=== PATIENT | female | born 1970 | race Caucasian/White ===

== ENCOUNTER → 2019-11-29 07:45 | Outpatient (CLI) | payer BC, SELFPAY ==
--- NOTE | ~2019-11-29 | XR_ITS ---
XR hip LT min 2V DATE: 11/29/2019 08:05 INDICATION: Hip pain. History of rheumatoid arthritis. TECHNIQUE: AP and lateral views of left hip COMPARISON: None FINDINGS: No fracture or dislocation, avascular necrosis or bone destruction. The left hip joint spac e is well preserved. The pubic symphysis and left sacroiliac joint are intact. IMPRESSION: Negative left hip Reviewed, dictated and finalized at location B. PER OFF IMPRESSION: Negative left hip
== END ==
DX: M05.79 Rheumatoid arthritis with rheumatoid factor of multiple sites without organ or systems involvement (principal); M25.552 Pain in left hip; Z51.81 Encounter for therapeutic drug level monitoring
CPT/HCPCS: 73502

== ENCOUNTER → 2020-06-20 12:48 | Outpatient (CLI) | payer BC, SELFPAY ==
--- NOTE | ~2020-06-20 | MM_ITS ---
EXAMINATION: MM scrn julia implant BI w ashleigh HISTORY: Screening mammogram TECHNIQUE: Craniocaudal and mediolateral oblique 3-D tomosynthesis images with implant displacement a nd synthetic 2-D images were generated. Craniocaudal and mediolateral oblique views of the breasts wi thout implant displacement were obtained using full field digital mammography. CAD analysis was submi tted and interpreted. COMPARISON: Comparison to multiple prior studies sequentially, with oldest reviewed study dated 06/04. BREAST PARENCHYMAL COMPOSITION: There are scattered areas of fibroglandular density. FINDINGS: There is no evidence of suspicious mass, calcification, or architectural distortion to sugg est malignancy in either breast. There has been no suspicious interval change. IMPRESSION: 1. No mammographic evidence of malignancy. 2. Recommend routine screening mammography in one year. BI-RADS Category 1: Negative Reviewed, dictated and finalized at location A.
== END ==
DX: Z12.31 Encounter for screening mammogram for malignant neoplasm of breast (principal)
CPT/HCPCS: 77063; 77067

== ENCOUNTER → 2022-04-17 12:07 | Outpatient (CLI) | payer BC, SELFPAY ==
--- NOTE | ~2022-04-17 | MM_ITS ---
EXAMINATION: MM scrn julia implant BI w ashleigh HISTORY: Screening mammogram TECHNIQUE: Craniocaudal and mediolateral oblique 3-D tomosynthesis images with implant displacement a nd synthetic 2-D images were generated. Craniocaudal and mediolateral oblique views of the breasts wi thout implant displacement were obtained using full field digital mammography. CAD analysis was submi tted and interpreted. COMPARISON: Comparison to multiple prior studies sequentially, with oldest reviewed study dated 06/09. BREAST PARENCHYMAL COMPOSITION: Breast composed of scattered areas of fibroglandular density FINDINGS: There are bilateral subpectoral silicone implants. There is no evidence of suspicious mass, calcification, or architectural distortion to suggest malignancy in either breast. There has been no suspicious interval change. IMPRESSION: 1. No mammographic evidence of malignancy. 2. Recommend routine screening mammography in one year. BI-RADS Category 1: Negative Reviewed, dictated and finalized at location A.
== END ==
PROVIDERS: Visit Provider Obstetrics & Gynecology
DX: Z12.31 Encounter for screening mammogram for malignant neoplasm of breast (principal)
CPT/HCPCS: 77063; 77067

== ENCOUNTER → 2023-03-18 14:56 | Outpatient (CLI) | payer BC, SELFPAY ==
--- NOTE | ~2023-03-18 | XR_ITS ---
EXAMINATION: XR lumbar spine 2-3V DATE: 03/18/2023 15:17 INDICATION: Low back pain TECHNIQUE: Anteroposterior and lateral views of the lumbar spine, and cone-down lateral view of the l umbosacral junction were obtained. COMPARISON: 12/23/2015 FINDINGS: Bone alignment is normal. There is no fracture. The vertebral body heights and intervertebr al disc spaces are maintained. There is mild facet joint osteoarthritis at L5-S1. Bilateral breast im plants are noted. The visualized lung bases are clear. IMPRESSION: 1. Mild lumbar spondylosis without acute findings. Reviewed, dictated and finalized at location F.
== END ==
DX: M47.896 Other spondylosis, lumbar region (principal)
CPT/HCPCS: 72100

== ENCOUNTER 2023-05-26 14:31 | Outpatient (CLI) | payer BC, SELFPAY ==
--- NOTE | ~2023-05-26 | MM_ITS ---
EXAMINATION: MM scrn julia implant BI w ashleigh HISTORY: Screening mammogram TECHNIQUE: Craniocaudal and mediolateral oblique 3-D tomosynthesis images with implant displacement a nd synthetic 2-D images were generated. Craniocaudal and mediolateral oblique views of the breasts wi thout implant displacement were obtained using full field digital mammography. CAD analysis was submi tted and interpreted. COMPARISON: Comparison to multiple prior studies sequentially, with oldest reviewed study dated 01/2014. BREAST PARENCHYMAL COMPOSITION: There are scattered areas of fibroglandular density. FINDINGS: There is no evidence of suspicious mass, calcification, or architectural distortion to sugg est malignancy in either breast. There has been no suspicious interval change. IMPRESSION: 1. No mammographic evidence of malignancy. 2. Recommend routine screening mammography in one year. BI-RADS Category 1: Negative Reviewed, dictated and finalized at location A.
== END 2023-05-26 14:32 | disposition home or self-care (01) ==
LOC: CHSIMG 14:33
PROVIDERS: Visit Provider Obstetrics & Gynecology
DX: Z12.31 Encounter for screening mammogram for malignant neoplasm of breast (principal)
CPT/HCPCS: 77063; 77067

== ENCOUNTER 2024-07-28 12:31 | Outpatient (CLI) | payer OTHER, SELFPAY ==
--- NOTE | ~2024-07-28 | XR_ITS ---
EXAMINATION: XR lumbar spine 2-3V, XR sacroiliac joints min 3V DATE: 07/28/2024 12:59 INDICATION: Rheumatoid arthritis TECHNIQUE: 1. Anteroposterior and lateral views of the lumbar spine, and cone-down lateral view of the lumbosacr al junction were obtained. 2. Anteroposterior and left and right oblique views of the bilateral sacralized joints were obtained. COMPARISON: 03/18/2023 FINDINGS: 2 mm anterolisthesis L4 on L5. Vertebral body and disc heights are normal. Mild lower lumbar facet os teoarthritis. It osteoarthritis. No erosions or subarticular sclerosis to suggest inflammatory sacroi liitis. Sacral arches are intact. Bilateral hip joint spaces are relatively preserved. IMPRESSION: 1. Mild lower lumbar facet osteoarthritis and minimal bilateral sacroiliac osteoarthritis. Otherwise unremarkable radiographs of the lumbar spine and sacroiliac joints. Reviewed, dictated and finalized at location A. IMPRESSION: 1. Mild lower lumbar facet osteoarthritis and minimal bilateral sacroiliac oste oarthritis. Otherwise unremarkable radiographs of the lumbar spine and sacroili ac joints.
== END 2024-07-28 12:32 | disposition home or self-care (01) ==
DX: M47.816 Spondylosis without myelopathy or radiculopathy, lumbar region (principal); M05.79 Rheumatoid arthritis with rheumatoid factor of multiple sites without organ or systems involvement; M06.4 Inflammatory polyarthropathy; M77.9 Enthesopathy, unspecified; R53.83 Other fatigue; M54.30 Sciatica, unspecified side; Z51.81 Encounter for therapeutic drug level monitoring
CPT/HCPCS: 72100; 72202

== ENCOUNTER 2025-08-20 07:15 | Outpatient (CLI) | payer BC, SELFPAY ==
--- NOTE | ~2025-08-20 | MM_ITS ---
EXAMINATION: MM scrn julia implant BI w ashleigh HISTORY: Screening mammogram TECHNIQUE: Craniocaudal and mediolateral oblique 3-D tomosynthesis images with implant displacement and synthetic 2-D images were generated. Craniocaudal and mediolateral oblique views of the breasts without implant displacement were obtained using full field digital mammography. CAD analysis was submitted and interpreted. COMPARISON: Comparison to multiple prior studies sequentially, with oldest reviewed study dated 09/03/2015. BREAST PARENCHYMAL COMPOSITION: Not dense: There are scattered areas of fibroglandular density. FINDINGS: There is no evidence of suspicious mass, calcification, or architectural distortion to suggest malignancy in either breast. There has been no suspicious interval change. IMPRESSION: 1. No mammographic evidence of malignancy. 2. Recommend routine screening mammography in one year. BI-RADS Category 1: Negative Reviewed, dictated and finalized at location B. ING SPECIALIST
--- OUTSIDE RECORDS SUMMARY | 2025-08-20 07:21 | XMS_ITS | Patient Health Record ---
Author Organization [facility] Address [address] [facility]. [address] [place] [id number] Care Team Providers Care Stage Set Designer Name Role Phone Dejan Samuels MD Primary Care Provider Keith Acevedo Unavailable [phone] Allergies Allergen (clinical drug ingredient) Drug/Non Drug Allergy documented on EMR Reaction Allergy Type Onset Date Status Substance with sulfonamide structure and antibacterial mechanism of action (substance) Sulfa (uncoded) Unknown Allergy Active Penicillin G Benzathine Unknown Drug Allergy Active Reason For Referral No Information Medications Medication SIG (Take, Route, Frequency, Duration) Notes Start Date End Date Status Methotrexate Active Premarin Active Enbrel Active OTC/Vitamins Folic acid, Zyrtec, D, C Active Rosuvastatin Calcium Active Levothyroxine Sodium Active Social History Tobacco Use: Social History Observation Description Date Details (start date - stop date) Former Smoker NA - NA Tobacco Use/Smoking Question Answer Notes Are you a former smoker How long has it been since you last smoked? 1-5 years Problems Problem Type SNOMED Code ICD Code Onset Dates Problem Status W/U Status Risk Notes Problem Constipation (64869301) Constipation (K59.00) Active confirmed Plan Of Treatment Pending Test Test Name Order Date Colonoscopy 10/28/2020 Insurance Providers Payer Name Payer Address Payer Phone Subscriber Number Group Number Insured Name Patient Relationship to Insured Coverage Start Date Coverage End Date [employer] PPO E2 [address] [place] [address] [id number] Bonilla Self - patient is the insured 1 1 Medical (General) History Surgical History Surgery Date(Month/Year) Hysterectomy 2009
--- OUTSIDE RECORDS SUMMARY | 2025-08-20 07:22 | XMS_ITS | Encounter Summary ---
Author Organization [facility] Address 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 Gender Identity Not on file Sexual Orientation Not on file documented as of this encounter Plan of Treatment Upcoming Encounters Date Type Department Care Team (Late st Contact Info) Description 05/29/2026 10:30 AM CDT Office Visit [facility] Internal Medicine Medical [place] [facility] [phone] [phone] Deep Sutton MD [address] [address] documented as of this encounter Visit Diagnoses Not on filedocumented in this encounter Care Teams Vocational Rehabilitation Specialist Relationship Specialty Start Date End Date Deep Sutton MD [address] [address] PCP - General Internal Medicine 01/31/21 documented as of this encounter
--- OUTSIDE RECORDS SUMMARY | 2025-08-20 07:22 | XMS_ITS | Encounter Summary ---
Author Organization [facility] Address 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 Gender Identity Not on file Sexual Orientation Not on file documented as of this encounter Plan of Treatment Upcoming Encounters Date Type Department Care Team (Late st Contact Info) Description 05/29/2026 10:30 AM CDT Office Visit [facility] Internal Medicine Medical [place] [facility] [address] [phone] Deep Sutton MD [address] [address] documented as of this encounter Visit Diagnoses Not on filedocumented in this encounter Care Teams Firer Glost Kiln Relationship Specialty Start Date End Date Deep Sutton MD [address] [address] PCP - General Internal Medicine 01/31/21 documented as of this encounter
--- OUTSIDE RECORDS SUMMARY | 2025-08-20 07:22 | XMS_ITS | Encounter Summary ---
Author Organization Address 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 SUPPORT COORDINATOR Gender Identity Not on file Sexual Orientation Not on file documented as of this encounter Plan of Treatment Upcoming Encounters Date Type Department Care Team (Late st Contact Info) Description 05/29/2026 10:30 AM CDT Office Visit [facility] Internal Medicine Medical [place] [facility] [address] [phone] eDep Sutton MD [address] [address] documented as of this encounter Visit Diagnoses Not on filedocumented in this encounter Care Teams Clerical Production Worker Relationship Specialty Start Date End Date Deep Sutton MD [address] [address] PCP - General Internal Medicine 01/31/21 documented as of this encounter
--- OUTSIDE RECORDS SUMMARY | 2025-08-20 07:22 | XMS_ITS | Clinical Summary ---
Author Organization [facility] Address [address] [place] [address] Phone Care Team Providers Care Repairer [employer]ding [employer] Equipment Name Role Phone Deep Sutton MD Primary Care Provider [phone] Allergies Active Allergy Reactions Criticality Noted Date Comments Penicillin Rash Low 11/20/2021 Penicillin G Other (See Comments) 06/25/2009 UNSURE OF REACTION Sulfa (Sulfonamide Antibiotics) Rash Low 06/25/2009 Medications cetirizine (ZyrTEC) 10 mg tablet Take 10 mg by mouth daily at bedtime. 1AM Active methotrexate (RHEUMATREX) 2.5 mg Tablet 021 Active EnbreL SureClick 50 mg/mL (1 mL) Pen Injector 022 Active folic acid (FOLVITE) 1 mg tablet 021 Active valACYclovir (Valtrex) 1 gram tablet Take 1 Tablet by mouth 2 times daily. 90 Tablet 3 023 Active conjugated estrogens (Premarin) 0.625 mg tablet TAKE 1 TABLET DAILY 90 Tablet 3 023 Active tirzepatide (Mounjaro) 2.5 mg/0.5 mL Pen Injector Inject 2.5 mg under the skin once weekly 2 mL 06/26/20 24 3:53 PM CDT 024 Active tirzepatide (Mounjaro) 5 mg/0.5 mL Pen Injector Inject 5 mg under the skin once weekly 2 mL 11/23/19 25 2:53 PM PHOTOGRAPH FINISHER 025 Active rosuvastatin (CRESTOR) 20 mg tabletIndications:Pure hypercholesterolemia TAKE ONE TABLET BY MOUTH EVERY DAY 100 Tablet 1 025 Active tirzepatide (Mounjaro) 7.5 mg/0.5 mL Pen Injector Inject 7.5mg (0.5ml) subcutaneously once weekly 2 mL 06/22/20 25 9:26 AM CDT 025 Active Active Problems Patient Care Coordination No te Formatting of this note migh t be different from the original. Dr. Ayala - HEALTHCARE RECEPTIONIST Dr. 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 tment with immunosuppressive medication 04/28/2023 Agatston coronary artery calcium score less than 100 02/26/2021 Overview (02/26/2021): - 02/2021: Score of 3 in the LAD Postmenopausal symptoms 01/31/2021 Hypothyroidism 01/31/2021 History of intraepithelial neoplasia of vagina 0 01/23/2019 Rheumatoid arthritis involvi ng multiple sites with positive rheumatoid factor 12/17/2015 Family history of early CAD 07/30/2011 Overview (01/31/2021): - Mother with VT in her 40s Pure hypercholesterolemia 07/30/2011 Former smoker 08/04/2010 S/P WHITNEY-BSO 08/04/2010 Resolved Problems Problem Noted Date Diagnosed Date Resolved Date Arthritis 03/15/2019 01/31/2021 ASCUS with positive high ris k human papillomavirus of vagina 01/02/2019 01/31/2021 Anxiety 12/17/2015 01/31/2021 Encounter for monitoring est rogen replacement therapy following surgical menopause 05/02/2014 Family history of diabetes mellitus (DM) 08/04/2010 01/31/2021 Diffuse cystic mastopathy 03/31/2010 Encounters Date Type Department Care Team Description 08/08/2025 External Device Data STL ABSTRACTION Provider, Abstract 08/07/2025 External Device Data STL ABSTRACTION Provider, Abstract 07/24/2025 External Device Data STL ABSTRACTION Provider, Abstract 05/31/2025 Results Follow-Up [facility] Internal Medicine Medical [place] [facility] [address] [facility] [address] [address] Adilia Dang PA CBC WITH DIFFERENTIAL, FERRITIN, IRON, TIBC, AND PERCENT SATURATION, Additional followed-up results: 5 05/29/2025 11:00 AM CDT Video Visit [facility] Internal Medicine Medical [place] [facility] [address] [facility] [address] [address] Adilia Dang PA Other fatigue (Primary Dx); Rheumatoid arthritis involving multiple sites with positive rheumatoid factor (CMS/HCC); Acute nonintractable headache, unspecified headache type; Dizziness from Last 3 Months Immunizations Immunization Administration Dates Next Due (ADACEL/BOOSTRIX)(10 YR UP) TDAP VACCINE, 0.5ML, IM 01/31/2021 (Moderna Bivalent)(6 Mos Up) COVID-19 Vaccine - Emergency Use Authorization, MRNA(Pf) 50 Mcg/0.5 Ml Im Susp 12/10/2020,11/12/2020 (PNEUMOVAX 23)(50 YRS UP) PN EUMOCOCCAL POLYSACCHARIDE (PPV23) 0.5 ML, IM 01/31/2021 INFLUENZA VACCINE QUADRIVALENT 3 YR UP PF IM 03/2015 INFLUENZA VACCINE QUADRIVALENT 6 MOS UP PF IM Influenza Seasonal Unspecified Formulation IM ,08/21/2014 Influenza Vaccine Tri Split 4+ Im 10/15/2016 Family History Medical History Relation Name Comments Healthy Brother Esvin Diabetes Father High Cholesterol Father Breast Cancer Maternal Aunt High Cholesterol Maternal Grandfather Heart Attack Maternal Grandmother Heart Surgery Maternal Grandmother Hemophilia Maternal Grandmother High Cholesterol Maternal Grandmother Hypertension Maternal Grandmother Ovarian Cancer Maternal Grandmother Arrhythmia Mother Heart Surgery Mother High Cholesterol Mother Hypertension Mother Breast Cancer Other great grandma Anemia Paternal Grandfather High Cholesterol Paternal Grandfather Other Paternal Grandfather diabete s Prostate Cancer Paternal Grandfather High Cholesterol Paternal Grandmother Healthy Sister 1 Jolie Healthy Sister 2 Leta Colon Cancer Neg Hx Gastric Cancer Neg Hx Lung Cancer Neg Hx Pancreatic Cancer Neg Hx Relation Name Status Comments Brother Esvin Alive Father Alive Maternal Aunt Maternal Grandfather Maternal Grandmother Mother Alive Other Paternal Grandfather Paternal Grandmother Sister 1 Jolie Alive Sister 2 Leta Alive Social History Tobacco Use Types Packs/Day Years Used Date Smoking Tobacco: Former Cigarettes 0.5 20 0 11/11/1999 - 11/11/2019 Passive Smoke Exposure: Never Smokeless Tobacco: Never Tobacco Cessation:Counseling Given: No Alcohol Use Standard Drinks/Week Comments Yes 1.7 (1 standard drink = 0.6 oz p ure alcohol) WEEKENDS Feeling Safe Answer Date Recorded Within the last year, have y ou been afraid of your partner or ex-partner? No 03/15/2019 Within the last year, have y ou been humiliated or emotionally abused in other ways by your partner or ex-partner? No Within the last year, have y ou been kicked, hit, slapped, or otherwise physically hurt by your partner or ex-partner? No 03/15/2019 Within the last year, have y ou been raped or forced to have any kind of sexual activity by your partner or ex-partner? No 03/15/2019 Social Connections Answer Date Recorded In a typical week, how many times do you talk on the phone with family, friends, or neighbors? Three times a week 03/15/2019 How often do you get togethe r with friends or relatives? Once a week 03/15/2019 How often do you attend chur or scientology services? Never 03/15/2019 Do you belong to any clubs o r organizations such as latter-day groups, unions, fraternal or athletic groups, or school groups? No 03/15/2019 How often do you attend meet ings of the clubs or organizations you belong to? Never 03/15/2019 Are you , , di vorced, , never , or living with a partner? 03/15/2019 Financial Resource Strain Answer Date R ecorded How hard is it for you to pa y for the very basics like food, housing, medical care, and heating? Not hard at all 03/15/2019 Food Insecurity Answer Date Recorded Within the past 12 months, y ou worried that your food would run out before you got the money to buy more. Never true 03/15/20 19 Within the past 12 months, t he food you bought just didn't last and you didn't have money to get more. Never true 03/15/2019 Transportation Needs Answer Date Record ed In the past 12 months, has l ack of transportation kept you from medical appointments or from getting medications? No 02/2019 In the past 12 months, has l ack of transportation kept you from meetings, work, or from getting things needed for daily living? 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 Not on file Not on file Last Filed Vital Signs Vital Sign Reading Time Taken Comments Blood Pressure 114/68 04/28/2023 2:24 PM CDT Pulse 75 04/28/2023 2:24 PM CDT Temperature 36.9 C (98.5 F) 06/18/2020 2:42 PM CDT Respiratory Rate 19 06/18/2020 2:42 PM CDT Oxygen Saturation 99% 04/28/2023 2:24 PM CDT Inhaled Oxygen Concentration - - Weight 56.7 kg (125 lb) 05/29/2025 8:38 AM CDT Height 157.5 cm (5' 2) 05/29/2025 8:38 AM CDT Body Mass Index 22.86 05/29/2025 8:38 AM CDT Plan of Treatment Upcoming Encounters Date Type Department Care Team (Late st Contact Info) Description 05/29/2026 10:30 AM CDT Office Visit [facility] Internal Medicine Medical [place] [address] [address] [address] Deep Sutton MD [address] [facility] [address] [place] [address] Health Maintenance Due Date Last Done Comments HEPATITIS B VACCINES (1 of 3 - 19+ 3-dose series) 1990 ZOSTER VACCINE (1 of 2) 1990 FIT-DNA Q 3 years 2016 FIT/FOBT Q 1 year 2016 Flex Sig/CT Colonography Q 5 years 2016 COVID-19 Vaccine (3 - Modern a risk series) 01/07/2021 12/10/2020, 11/12/2020 BREAST CANCER SCREENING 05/26/2024 05/26/20 23, 04/17/2022, 06/20/2020, Additional history exists INFLUENZA VACCINE (#1) 2025 0, 07/26/2019, 10/15/2016, Additional history exists COLORECTAL SCREENING 12/09/2030 12/09/2020 Colorectal Cancer Screening 12/09/2030 DTAP/TDAP/TD VACCINES (2 - T d or Tdap) 01/31/2031 01/31/2021 Medical Devices Implanted Type Area Manager Practice Device Identifier Shelf Expiration Date Model / Serial / Lot Barrier Seprafilm [id number] Implanted:Qty: 1 on 07/01/2009 at [facility] Adhesion Barrier GENZYME- [id number] [id number] / / Procedures Procedure Name Priority Date/Time Associated Diagnosis Comments TSH Routine 05/30/2025 8:03 AM CDT T4 FREE Routine 05/30/2025 8:03 AM CDT Other fatigue COMPREHENSIVE METABOLIC PANEL Routine 05/30/2025 8:03 AM CDT Other fatigue VITAMIN B12 LEVEL Routine 05/30/2025 8:0 3 AM CDT Other fatigue VITAMIN D 25 HYDROXY Routine 05/30/2025 8:03 AM CDT Other fatigue IRON, TIBC, AND PERCENT SATURATION Routine 05/30/2025 8:03 AM CDT Other fatigue FERRITIN Routine 05/30/2025 8:03 AM CDT Other fatigue CBC WITH DIFFERENTIAL Routine 05/30/2025 8:03 AM CDT Other fatigue MAMMO 3D TIFFANIE SCREEN IMPL BILAT W OR WO CAD MOBILE Routine 05/26/2023 2:44 PM CDT from Last 3 Months or Most Recently Relevant to Health Maintenance Results * IRON, TIBC, AND PERCENT SATURATION (05/30/2025 8:03 AM CDT) IRON 103 45 - 160 mcg/dL [facility] TIBC 328 250 - 450 mcg/dL (calc) [facility] IRON % SATURATION 31 16 - 45 % (calc) [facility] Comment: FASTING:YES FASTING: YES Test Performed at: [facility] [address] Arian Colon MD Blood 05/30/2025 8:03 AM CDT 05/30/2025 8:04 AM CDT Adilia BOWLES CHEMISTRY ORDERABLES Final Result [facility] [phone] [facility] [address] * (ABNORMAL) CBC WITH DIFFERENTIAL (05/30/2025 8:03 AM CDT) WBC 4.0 3.8 - 10.8 Thousand/ uL [facility] RBC 3.56(L) 3.80 - 5.10 Million/u L [facility] HEMOGLOBIN 12.3 11.7 - 15.5 g/dL [facility] HEMATOCRIT 38.7 35.0 - 45.0 % [facility] MCV 108.7(H) 80.0 - 100.0 fL [facility] MCH 34.6(H) 27.0 - 33.0 pg [facility] MCHC 31.8(L) 32.0 - 36.0 g/dL [facility] Comment: For adults, a slight decrease in the calculated MCHC value (in the range of 30 to 32 g/dL) is most likely not clinically significant; however, it should be interpreted with caution in correlation with other red cell parameters and the patient's clinical condition. RDW 12.4 11.0 - 15.0 % [facility] PLATELETS 260 140 - 400 Thousand/ uL [facility] MPV 9.3 7.5 - 12.5 fL [facility] NEUTROPHIL ABSOLUTE 1,532 1,500 - 7,800 cells/uL [facility] LYMPHOCYTE ABSOLUTE 1,964 850 - 3,900 cells/uL [facility] MONOCYTE ABSOLUTE 404 200 - 950 cells/uL [facility] EOSINOPHIL ABSOLUTE 60 15 - 500 cells/uL [facility] BASOPHILS ABSOLUTE 40 0 - 200 cells/uL [facility] NEUTROPHIL 38.3 % [facility] LYMPHOCYTES 49.1 % [facility] MONOCYTE 10.1 % [facility] EOSINOPHILS 1.5 % [facility] BASOPHILS 1.0 % [facility] Comment: FASTING:YES FASTING: YES Test Performed at: [facility] [place] [address] [place] [address] Arian Colon Blood 05/30/2025 8:03 AM CDT 05/30/2025 8:04 AM CDT Adilia BOWLES HEMATOLOGY ORDERABLES [facility] Result [facility] [phone] [facility] [place] [address] [place] [address] * VITAMIN D 25 HYDROXY (05/30/2025 8:03 AM CDT) VITAMIN D, 25 OH, TOTAL 36 30 - 100 ng/mL [facility] Comment: Vitamin D Status 25-OH Vitamin D: Deficiency: <20 ng/mL Insufficiency: 20 - 29 ng/mL Optimal: > or = 30 ng/mL For 25-OH Vitamin D testing on patients on D2-supplementation and patients for whom quantitation of D2 and D3 fractions is required, the [facility] 25-OH VIT D, (D2,D3), LC/MS/MS is recommended: order code 92435 (patients >2yrs). See Note 1 Note 1 For additional information, please refer to http://education.Planitax/faq/XWU868 (This link is being provided for informational/ educational purposes only.) FASTING:YES FASTING: YES Test Performed at: [facility] [address] [address] Arian Colon MD Blood 05/30/2025 8:03 AM CDT 05/30/2025 8:04 AM CDT Adilia BOWLES CHEMISTRY ORDERABLES Final Result Performing Organization Address City/State/ZIP [facility] Phone Number [facility] [phone] [facility] [address] [place] [address] * (ABNORMAL) TSH (05/30/2025 8:03 AM CDT) TSH 6.34(H) mIU/L [facility] Comment: Reference Range > or = 20 Years 0.40-4.50 Ranges First trimester 0.26-2.66 Second trimester 0.55-2.73 Third trimester 0.43-2.91 FASTING:YES FASTING: YES Test Performed at: [place] [address] [place] [place] [address] [facility] Vo 05/30/2025 8:03 AM CDT 05/30/2025 8:04 AM CDT Adilia BOWLES CHEMISTRY ORDERABLES Final Result Performing Organization Address [facility] Phone Number [facility] [phone] [place] [address] [place] [place] [address] * T4 FREE (05/30/2025 8:03 AM CDT) T4 FREE 0.9 0.8 - 1.8 ng/dL [facility] Comment: Test Performed at: [facility] [place] [address] [address] [place] [place] [address] [facility] Th[facility] Vo Blood 05/30/2025 8:03 AM CDT 05/30/2025 8:04 AM CDT Adilia BOWLES CHEMISTRY ORDERABLES Final Result Performing Organization Address City/[facility]/ZIP Code Phone Number [facility] [phone] [place] [address] [address] [place] [place] [address] * FERRITIN (05/30/2025 8:03 AM CDT) Pathologist [facility] FERRITIN 121 16 - 232 ng/mL [facility] Comment: Test Performed at: [facility] [id number] [place] [phone] Arian Colon MD Blood 05/30/2025 8:03 AM CDT 05/30/2025 8:04 AM CDT Adilia BOWLES CHEMISTRY ORDERABLES Final Result Performing Organization Address City/[facility]/ZIP Co de Phone Number [facility] [phone] [facility] [address] [place] [address] * VITAMIN B12 LEVEL (05/30/2025 8:03 AM CDT) [facility] VITAMIN B12 263 200 - 1100 pg/mL [facility] Comment: Please Note: Although the reference range for vitamin B12 is 200-1100 pg/mL, it has been reported that between 5 and 10% of patients with values between 200 and 400 pg/mL may experience neuropsychiatric and hematologic abnormalities due to occult B12 deficiency; less than 1% of patients with values above 400 pg/mL will have symptoms. Test Performed at: [facility] [address] Arian Colon MD Blood 05/30/2025 8:03 AM CDT 05/30/2025 8:04 AM CDT Adilia BOWLES CHEMISTRY ORDERABLES Final Result [facility] [phone] [facility] [address] [place] [address] * COMPREHENSIVE METABOLIC PANEL (05/30/2025 8:03 AM CDT) [facility] GLUCOSE 76 65 - 99 mg/dL [facility] Comment: Fasting reference interval BUN 16 7 - 25 mg/dL [facility] CREATININE 0.74 0.50 - 1.03 mg/dL [facility] GFR 97 > OR = 60 mL/min/1. 73m2 [facility] BUN/CREAT RATIO SEE NOTE: 6 - 22 (calc) [facility] Comment: Not Reported: BUN and Creatinine are within reference range. SODIUM 139 135 - 146 mmol/L [facility] POTASSIUM 4.4 3.5 - 5.3 mmol/L [facility] CHLORIDE 104 98 - 110 mmol/L [facility] CO2 27 20 - 32 mmol/L [facility] CALCIUM 9.2 8.6 - 10.4 mg/dL [facility] TOTAL PROTEIN 6.8 6.1 - 8.1 g/dL [facility] ALBUMIN 3.9 3.6 - 5.1 g/dL [facility] GLOBULIN 2.9 1.9 - 3.7 g/dL (calc) [facility] ALBUMIN/GLOBULIN RATIO 1.3 1.0 - 2.5 (calc) [facility] BILIRUBIN TOTAL 0.9 0.2 - 1.2 mg/dL [facility] ALKALINE PHOSPHATASE 43 37 - 153 U/L [facility] AST 24 10 - 35 U/L [facility] ALT 24 6 - 29 U/L [facility] Comment: FASTING:YES FASTING: YES Test Performed at: [facility] [place] [address] [address] [place] [place] [address] Arian Alvarado Blood 05/30/2025 8:03 AM CDT 05/30/2025 8:04 AM CDT us Adilia BOWLES CHEMISTRY ORDERABLES Final Result [facility] [phone] [place] [address] [address] [place] [place] [address] * MAMMO SCRN JOSÉ IMPL 3D TIFFANIE W OR WO CAD MOBILE (05/26/2023 2:44 PM CDT) Anatomical Region Laterality Modality Breast Bilateral Mammography Nolan Ayala MD MAMMO ORDERABLES Edite d Result - Final from Last 3 Months or Most Recently Relevant to Health Maintenance Insurance RX [facility] Commercial RX DE [employer]Z PLANS (INTERNAL) [facility] RX [facility] Commercial RX [facility] [employer] Commercial [facility] BLUE PREFERRED Advance Directives For more information, please contact: [phone] * Full Code (Latest Code Status on File) Date Activated Date Inactivated Comments 03/21/2020 6:22 AM 03/21/2020 11:21 AM * Full Code Date Activated Date Inactivated Comments 07/01/2009 8:43 PM 07/02/2009 2:28 PM Care Teams Repairer [employer] Systems [employer] Equipment Relationship Specialty Start Date End Date Deep Sutton MD [address] [place] [address] PCP - General Internal Medicine 01/31/21
--- OUTSIDE RECORDS SUMMARY | 2025-08-20 07:22 | XMS_ITS | Clinical Summary ---
Author Organization [facility] [address] [place] Address [address] [place] [phone] Care Team Providers Care Light Rail Transit Operator Name Role Phone Deep Sutton MD Primary Care Provider [phone] Ana M Wayne MD Unavailable [phone] Allergies Active Allergy Reactions Criticality Noted Date Comments Penicillin G Benzathine Rash,Unknown Medium 10/28/2020 Sulfa (Sulfonamide Antibiotics) Sulfa (Sulfonamide Antibiotics) Rash,Unknown Medium Medications clindamycin (CLEOCIN) 2 % vaginal cream 1 APPLICATORSFUL PER VAGINA AT BEDTIME X4 WEEKS 3 Active Premarin 0.625 mg tablet 3 Active EnbreL SureClick 50 mg/mL (1 mL) pen injector 3 Active Synthroid 75 mcg tablet 3 Active folic acid (FOLVITE) 1 mg tablet 3 Active methotrexate 2.5 mg tablet 3 Active rosuvastatin (CRESTOR) 20 mg tablet 2 Active valACYclovir (VALTREX) 1 gram tablet 4 Active benzonatate (TESSALON) 100 mg capsuleIndicat ions:Cough Take 1 capsule (100 mg total) by mouth 3 (three) times a day as needed for cough 42 capsule 4 Active Additional Information Patient not taking.Reported on 03/08/2025 albuterol HFA (PROVENTIL HFA,VENTOLIN HFA,PROAIR HFA) 90 mcg/actuation inhalerIndicat ions:Bronchosp asm Prevention Inhale 2 puffs every 6 (six) hours as needed for wheezing or shortness of breath 18 g Active Additional Information Patient not taking.Reported on 03/08/2025 fluconazole (DIFLUCAN) 150 mg tabletIndicati ons:Antibiotic -induced yeast infection Take 1 tablet (150 mg total) by mouth daily Take one tab now. Repeat in 7 days if symptoms persist. 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 Sciatica 08/02/2024 Tendinitis 08/02/2024 Constipation 12/26/2022 Tobacco dependence syndrome 02/24/2014 Overview (01/15/2017): TOBACCO USE DISORDER Social History Tobacco Use Types Packs/Day Years Used Date Smoking Tobacco: Never Passive Smoke Exposure: Never Smokeless Tobacco: Never Comments Unknown Sex and Gender Information Value Date Recorded Sex Assigned at Not on file Legal Sex Female 4:00 PM CDT Gender Identity Not on file Sexual Orientation Not on file Last Filed Vital Signs Vital Sign Reading Time Taken Comments Blood Pressure 100/68 03/08/2025 11:12 AM CDT Pulse 67 03/08/2025 11:12 AM CDT Temperature 36.8 C (98.3 F) 03/08/2025 11:12 AM CDT Respiratory Rate 18 03/08/2025 11:1 2 AM CDT Oxygen Saturation 99% 03/08/2025 11: 12 AM CDT Inhaled Oxygen Concentration - - Weight 57.1 kg (125 lb 14.4 oz) 025 11:12 AM CDT Height 157.5 cm (5' 2.01) 03/08/2025 1 1:12 AM CDT Body Mass Index 23.02 03/08/2025 11:12 AM CDT Plan of Treatment Health Maintenance Due Date Last Done Comments Cervical Cancer Screening 1971 Colon Cancer Screening-Colonoscopy 1971 Depression Screening 1971 Hepatitis C Screening 1971 Hepatitis B Screening 1989 Regular Well Visit/Exam 18-64 1989 Zoster Vaccine (1 of 2) 1990 Pneumococcal vaccine <65 (2 of 2 - PCV) 01/31/2022 01/31/2021 Breast Cancer Screening-Mammogram 05/26/2024 023 Covid-19 Vaccine (4 - 2024-2 6 season) 2025 08/27/2021, 11/22/2020, 10/24/2020 Influenza Vaccine (#1) 2025 , 07/03/2020, 07/26/2019, Additional history exists DTaP/Tdap/Td Vaccine (2 - Td or Tdap) 01/31/2031 01/31/2021 Insurance [employer] OOS [employer] OOS [employer] PREFERRED Care Teams Light Rail Transit Operator Relationship Specialty Start Date End Date Deep Sutton MD [address] [facility] [address] [place] [address] PCP - General Internal Medicine 12/26/22 Ana M Wayne MD [address] [facility] [address] [place] [address] 12/26/22
--- OUTSIDE RECORDS SUMMARY | 2025-08-20 07:22 | XMS_ITS | Encounter Summary ---
Author Organization [facility] Address 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 Gender Identity Not on file Sexual Orientation Not on file documented as of this encounter Plan of Treatment Upcoming Encounters Date Type Department Care Team (Late st Contact Info) Description 05/29/2026 10:30 AM CDT Office Visit [facility] Internal Medicine Medical [place] [facility] [address] [phone] Deep Sutton MD [address] [address] documented as of this encounter Visit Diagnoses Not on filedocumented in this encounter Care Teams Blueprinter Relationship Specialty Start Date End Date Deep Sutton MD [address] [address] PCP - General Internal Medicine 01/31/21 documented as of this encounter
--- OUTSIDE RECORDS SUMMARY | 2025-08-20 07:22 | XMS_ITS | Encounter Summary ---
Author Organization [facility] Address 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 Gender Identity Not on file Sexual Orientation Not on file documented as of this encounter Plan of Treatment Upcoming Encounters Date Type Department Care Team (Late st Contact Info) Description 05/29/2026 10:30 AM CDT Office Visit [facility] Internal Medicine Medical [place] [facility] [address] [phone] Deep Sutton MD [address] [address] documented as of this encounter Visit Diagnoses Not on filedocumented in this encounter Care Teams Support Specialist Relationship Specialty Start Date End Date Deep Sutton MD [address] [address] PCP - General Internal Medicine 01/31/21 documented as of this encounter
--- OUTSIDE RECORDS SUMMARY | 2025-08-20 07:22 | XMS_ITS | Encounter Summary ---
Author Organization [facility] Address [address] [place] [address] Care Team Providers Care Hog Sticker Name Role Phone Deep Sutton MD Primary Care Provider [phone] Encounter Details Date Type Department Care Team (Late st Contact Info) Description 08/10/2015 Nurse Triage Report ST[facility] ABSTRACTION Farnaz Whiting, RN Social History Tobacco Use Types Packs/Day Years Used Date Smoking Tobacco: Every Day Cigarettes 1 20 Smokeless Tobacco: Never Alcohol Use Standard Drinks/Week Comments Yes 1.7 (1 standard drink = 0.6 oz p ure alcohol) WEEKENDS Comments No Sex and Gender Information Value Date Recorded Sex Assigned at Not on file 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 Report feedback to Dr Fransico Del Cid Associated Symptoms: itching, bright red patch covering neck to cheeks Onset: rash and itching 10 days ago - spreading since , burning and increased redness yesterday Location: neck to cheeks Pain Assessment: 1 - 10 with 10 being the most severe pain burning 7 constantly - worse after applying diprolene Treatment so far for current presenting problem: diprolene, moisterizer History (Clinical Problems): dx with dermatis of neck 1 week ago - worsening since History (Oncology/Hematology Diagnosis): no Medications: crestor, premarin, zyrtec, vit Medication reactions: sulfa <<<<<<<< TRIAGE NOTE >>>>>>>> <<<<<<<< TRIAGE/OUTCOME >>>>>>>> Guideline Title: Rash Recommended Disposition: See Provider within 24 hours Original Inclination: Call Provider/See in 24 Intended Action: Call or See Provider within 24 hrs Physician Contacted: No Evaluated by provider AND symptoms worsening when following recommended treatment plan ? YES documented in this encounter Plan of Treatment Upcoming Encounters Date Type Department Care Team (Late st Contact Info) Description 05/29/2026 10:30 AM CDT Office Visit [facility] Internal Medicine [facility] [address] [phone] Deep Sutton MD [address] [address] documented as of this encounter Visit Diagnoses Not on filedocumented in this encounter Care Teams Hog Sticker Relationship Specialty Start Date End Date Deep Sutton MD [address] [address] PCP - General Internal Medicine 01/31/21 documented as of this encounter
--- OUTSIDE RECORDS SUMMARY | 2025-08-20 07:22 | XMS_ITS | Encounter Summary ---
Author Organization [facility] Address 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 Gender Identity Not on file Sexual Orientation Not on file documented as of this encounter Plan of Treatment Upcoming Encounters Date Type Department Care Team (Late st Contact Info) Description 05/29/2026 10:30 AM CDT Office Visit [facility] Internal Medicine Medical [place] [facility] [address] [phone] Deep Sutton MD [address] [address] documented as of this encounter Visit Diagnoses Not on filedocumented in this encounter Care Teams Estate Administrator Relationship Specialty Start Date End Date Deep Sutton MD [address] [address] PCP - General Internal Medicine 01/31/21 documented as of this encounter
--- OUTSIDE RECORDS SUMMARY | 2025-08-20 07:22 | XMS_ITS | Encounter Summary ---
Author Organization [facility] Address 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 Gender Identity Not on file Sexual Orientation Not on file documented as of this encounter Plan of Treatment Upcoming Encounters Date Type Department Care Team (Late st Contact Info) Description 05/29/2026 10:30 AM CDT Office Visit [facility] Internal Medicine Medical [place] [facility] [address] [phone] Deep Sutton MD [address] [address] documented as of this encounter Visit Diagnoses Not on filedocumented in this encounter Care Teams Machinery Mover Relationship Specialty Start Date End Date Deep Sutton MD [address] [address] PCP - General Internal Medicine 01/31/21 documented as of this encounter
--- OUTSIDE RECORDS SUMMARY | 2025-08-20 07:22 | XMS_ITS | Encounter Summary ---
Author Organization [facility] Address 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 Gender Identity Not on file Sexual Orientation Not on file documented as of this encounter Plan of Treatment Upcoming Encounters Date Type Department Care Team (Late st Contact Info) Description 05/29/2026 10:30 AM CDT Office Visit [facility] Internal Medicine Medical [place] [facility] [address] [phone] Deep Sutton MD [address] [address] documented as of this encounter Visit Diagnoses Not on filedocumented in this encounter Care Teams Senior C Web Developer Relationship Specialty Start Date End Date Deep Sutton MD [address] [address] PCP - General Internal Medicine 01/31/21 documented as of this encounter
--- OUTSIDE RECORDS SUMMARY | 2025-08-20 07:22 | XMS_ITS | Encounter Summary ---
Author Organization [facility] Address 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 Gender Identity Not on file Sexual Orientation Not on file documented as of this encounter Plan of Treatment Upcoming Encounters Date Type Department Care Team (Late st Contact Info) Description 05/29/2026 10:30 AM CDT Office Visit [facility] Internal Medicine Medical [place] [facility] [address] [place] [phone] Deep Sutton MD [address] [address] documented as of this encounter Visit Diagnoses Diagnosis Gynecological examination- Primary documented in this encounter Care Teams Gear Shaver Set Up Operator Relationship Specialty Start Date End Date Deep Sutton MD [address] [address] PCP - General Internal Medicine 01/31/21 documented as of this encounter
--- OUTSIDE RECORDS SUMMARY | 2025-08-20 07:22 | XMS_ITS | Encounter Summary ---
Author Organization [facility] Address 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 Gender Identity Not on file Sexual Orientation Not on file documented as of this encounter Plan of Treatment Upcoming Encounters Date Type Department Care Team (Late st Contact Info) Description 05/29/2026 10:30 AM CDT Office Visit [facility] Internal Medicine Medical [place] [facility] [address] [phone] Deep Sutton MD [address] [address] documented as of this encounter Visit Diagnoses Not on filedocumented in this encounter Care Teams Director Of Elementary Education Relationship Specialty Start Date End Date Deep Sutton MD [address] [address] PCP - General Internal Medicine 01/31/21 documented as of this encounter
--- OUTSIDE RECORDS SUMMARY | 2025-08-20 07:22 | XMS_ITS | Encounter Summary ---
Author Organization [facility] Address 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 Gender Identity Not on file Sexual Orientation Not on file documented as of this encounter Plan of Treatment Upcoming Encounters Date Type Department Care Team (Late st Contact Info) Description 05/29/2026 10:30 AM CDT Office Visit [facility] Internal Medicine Medical [place] [facility] [address] [phone] Deep Sutton MD [address] [address] documented as of this encounter Visit Diagnoses Not on filedocumented in this encounter Care Teams Assistant Track Coach Relationship Specialty Start Date End Date Deep Sutton MD [address] [address] PCP - General Internal Medicine 01/31/21 documented as of this encounter
== END 2025-08-20 07:16 | disposition home or self-care (01) ==
PROVIDERS: Visit Provider Obstetrics & Gynecology
DX: Z12.31 Encounter for screening mammogram for malignant neoplasm of breast (principal)
CPT/HCPCS: 77063; 77067